=== PATIENT | female | born 1965 | race African-American/Black ===

== ENCOUNTER 2017-03-05 19:26 | Emergency (ER) | payer SELFPAY ==
[~2017-03-05] VITALS: Ht 170.2 cm; Wt 146.1 kg
[2017-03-05] MEDS ORDERED: HYDR12.53 PO (19:48)
[2017-03-05] MEDS ORDERED: METO200T5 PO (19:48)
[2017-03-05 19:59] LABS: HEMATOCRIT 45.1 % (34.6-47.8); HEMOGLOBIN 15.2 g/dL (11.7-16.4)
[2017-03-05] MEDS ORDERED: METOPROLOL TARTRATE 50 MG TABLET PO ONE (20:00)
[2017-03-05 20:08] LABS: BLOOD UREA NITROGEN 13 mg/dL (7-18)
[2017-03-05] MEDS ORDERED: METOPROLOL TARTRATE 50 MG TABLET ONE (20:12)
[2017-03-05] MEDS ORDERED: KETOROLAC 30 MG/1 ML IM ONE (20:30)
[2017-03-05] MEDS ORDERED: KETOROLAC 30 MG/1 ML ONE (20:39)
[2017-03-05 21:29] VITALS: BP 141/79
== END 2017-03-05 21:48 | disposition home or self-care (01) ==
LOC: ED 21:24
DX: Z76.0 Encounter for issue of repeat prescription (principal); I10 Essential (primary) hypertension; M79.605 Pain in left leg; M79.604 Pain in right leg
CPT/HCPCS: 36415; 71010; 80048; 82040; 83880; 85025; 93005; 93970; 96372; 99285; J1885